=== PATIENT | female | born 2000 | race Two or more races ===

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

== ENCOUNTER 2019-11-21 01:37 | Emergency (ER) | payer OTHER ==
[~2019-11-21] VITALS: Ht 160 cm; Wt 118.0 kg
[2019-11-21 06:19] VITALS: BP 100/58
[2019-11-21] MEDS ORDERED: ACETAMINOPHEN WITH CODEINE 300/30MG TABLET PO ONE (06:45)
== END 2019-11-21 07:57 | disposition home or self-care (01) ==
LOC: ER 01:37
DX: R07.89 Other chest pain (principal); Z90.49 Acquired absence of other specified parts of digestive tract; V89.2XXA Person injured in unspecified motor-vehicle accident, traffic, initial encounter; Y93.9 Activity, unspecified; Y92.410 Unspecified street and highway as the place of occurrence of the external cause
CPT/HCPCS: 71045; 81025; 93005; 99283

== ENCOUNTER 2024-07-15 10:57 | Emergency (ER) | payer OTHER ==
[~2024-07-15] VITALS: Ht 160 cm; Wt 132.0 kg
[2024-07-15 11:13] VITALS: TEMP 98.3; O2SAT 75
[2024-07-15] MEDS: KETOROLAC 30MG/ML VIAL IV STA (12:04)
[2024-07-15 12:06] LABS: HEMATOCRIT. 43.2 % (36.0-48.0); HEMOGLOBIN. 13.9 g/dL (12.0-16.0); LYMPHOCYTES % 16.3 % (20.0-50.0); MEAN CORPUSCULAR HEMOGLOBIN 26.2 pg (28.0-32.0); MEAN CORPUSCULAR HGB CONC 32.2 g/dL (31.0-37.0); MEAN CORPUSCULAR VOLUME 81.3 fL (81.0-99.0); MEAN PLATELET VOLUME 8.1 fl (7.4-10.4); MONOCYTES % 5.7 % (2.0-8.0); PLATELET 328 x1000/uL (130-400); RED BLOOD CELL COUNT 5.31 mill/uL (4.2-5.4); RED CELL DISTRIBUTION WIDTH 15.3 % (11.6-14.6); WHITE BLOOD COUNT 11.7 x1000/uL (4.5-11.0)
[2024-07-15 12:09] LABS: CHLORIDE 106 mEq/L (98-107); POTASSIUM 3.9 mEq/L (3.5-5.1); SODIUM 137 mEq/L (136-145)
[2024-07-15 12:10] LABS: CARBON DIOXIDE 24 mEq/L (21-32)
[2024-07-15 12:11] LABS: CALCIUM 9.4 mg/dL (8.7-10.4)
[2024-07-15 12:15] LABS: CREATININE 0.7 mg/dL (0.6-1.0); GLUCOSE 96 mg/dL (70-105)
[2024-07-15 12:16] LABS: UREA NITROGEN BLOOD 10 mg/dL (9-23)
[2024-07-15] MEDS ORDERED: CIPR1DRO2 RIGHT EAR (13:04)
[2024-07-15] MEDS ORDERED: SULF1TAB48 MT (13:04)
[2024-07-15] MEDS ORDERED: CEPH500C2 MT (13:04)
[2024-07-15] MEDS ORDERED: NAPR-681 PO (13:04)
[2024-07-15] MEDS: CEFTRIAXONE 1GM/50ML 50 ML IV ONE (13:17)
[2024-07-15 13:36] VITALS: BP 127/78; PULSE 68; RESP 14; O2SAT 99
== END 2024-07-15 13:37 | disposition home or self-care (01) ==
LOC: ER 11:06
DX: H60.11 Cellulitis of right external ear (principal)
CPT/HCPCS: 80048; 81025; 85025; 36415; 70480; 96365; 96375; 99285; J0696; J1885; Z7610 ×2